=== PATIENT | male | born 1975 | race Caucasian/White ===

== ENCOUNTER 2018-07-24 11:07 | Emergency (ER) | payer BC ==
[2018-07-24] MEDS ORDERED: Sodium Chloride 0.9% 1,000 ML IV ONE (11:23)
[2018-07-24] MEDS ORDERED: Ondansetron 4 MG/2 ML SDV IVPUSH ONE (11:23)
--- NOTE | 2018-07-24 11:23 | EDM.PDOC ---
ED HPI GENERAL MEDICAL PROBLEM - General Chief Complaint: Gastrointestinal Problem Stated Complaint: STOMACH ISSUES Time Seen by Provider: 07/24/18 11:17 Source of Information: Reports: Patient History Limitations: Reports: No Limitations - History of Present Illness INITIAL COMMENTS - FREE TEXT/NARRATIVE: HISTORY AND PHYSICAL: History of present illness: Patient is a 43-year-old male who presents to the emergency room today with complaints of right lower/right upper abdominal pain that radiates around to the back. He describes the pain as burning and sometimes sharp. Patient states that he has noticed a change in his stools over the past month and has had watery diarrhea pretty consistently, without blood in his stool. He states he has had intermittent abdominal pain but didn't think anything of it until the past couple days when it has drastically worsened. He states last night his pain was an 8-9 out of 10. He states he has been taking ibuprofen and his pain this morning is now 3-4 out of 10. He states he has never had this sort of pain before. Patient states that the pain seems to be a little bit better when he is up and walking. He denies any relation of the pain to eating or drinking. He states that he came in today when he noticed that while upon wakening that his belly felt "firm". Patient states he has felt as if he's had chills but has not checked his temperature at home. Patient states that his blood pressure tends to be a little bit higher, but today seems higher than his normal. He has been able to urinate per his normal. He states he has been able to eat and drink per his normal. Patient denies chest pain, shortness of breath, difficulties breathing, diaphoresis, pain in either arm or jaw, wheezing, dysuria, testicular pain, nausea, vomiting, or any other GI, . Denies any cardiovascular or respiratory symptoms. Patient states he has a history of depression and denies any other health history. Review of systems: As per history of present illness and below otherwise all systems reviewed and negative. Past medical history: As per history of present illness and as reviewed below otherwise noncontributory. Surgical history: As per history of present illness and as reviewed below otherwise noncontributory. Social history: See social history for further information Family history: As per history of present illness and as reviewed below otherwise noncontributory. Physical exam: General: Patient is alert, oriented, and in no acute distress. Well-developed and well-nourished. He is sitting comfortably on exam table. HEENT: Atraumatic, normocephalic, pupils equal and reactive bilaterally, negative for conjunctival pallor or scleral icterus, mucous membranes moist, TMs normal bilaterally, throat clear, neck supple, nontender, trachea midline. No drooling or trismus noted. No meningeal signs. No hot potato voice noted. Lungs: Clear to auscultation, breath sounds equal bilaterally, chest nontender. Heart: S1S2, regular rate and rhythm without overt murmur. Abdomen: Obese, semi-firm, distended, moderate tenderness to the right lower and right upper quadrant. Negative rebound tenderness. Negative psoas and obturator sign. Negative for masses or hepatosplenomegaly. Negative for costovertebral tenderness. Abdominal exam is limited due to pain. Pelvis: Stable nontender. Genitourinary: Deferred. Rectal: Deferred. Skin: Intact, warm, dry. No lesions or rashes noted. Extremities: Atraumatic, moves all per self, negative for cords or calf pain. Neurovascular unremarkable. Neuro: Awake, alert, oriented. Cranial nerves II through XII unremarkable. Cerebellum unremarkable. Motor and sensory unremarkable throughout. Exam nonfocal. Notes: Patient's labs are reassuring today with slight elevation of monocytes. Patient was unable to give us a stool study today while in the ED. We will give him supplies over to do this at home and returned this. Abdominal pelvic CT shows moderate splenomegaly but no acute findings in the abdomen or pelvis. We'll test for mono today and will call patient regarding these results when they return. Patients number is [phone]. [place] had resulted prior to patient being discharged. This information was shared with the patient. Supportive care measures were reviewed and discussed. He voices understanding and is agreeable to plan of care. He denies any need for any prescribed medications for his symptoms. He'll follow-up with his primary care provider. Denies any further questions or concerns at this time. Diagnostics: CBC, CMP, UA, Amylase, Lipase, Stool Studies, Abd/Pelvis CT, EKG [employer]: IV fluids, Toradol Prescription: None Impression: Abdominal pain unspecified. Splenomegaly Plan: 1. [place] diet, advance as tolerated. You can use Tylenol and ibuprofen as needed for pain/discomfort. 2. Follow up with stool studies, as we had given and bring back for analysis. 3. We will call you when the mono test results has come back. 4. Follow up with your primary care provider in 1 to 2 days. 5. Return to the ED as needed and as discussed. Definitive disposition and diagnosis as appropriate pending reevaluation and review of above. Right Abdominal Pain Score (Numeric/FACES): 3 - Related Data Allergies Allergy/AdvReac Type Severity Reaction Status Date / Time Penicillins Allergy Hives Verified 07/24/18 11:25 Home Meds: Home Meds Sertraline HCl 100 mg PO DAILY 07/24/18 [History] ED ROS GENERAL - Review of Systems Review Of Systems: ROS reveals no pertinent complaints other than HPI. ED EXAM, GI/ABD - Physical Exam Exam: See Below (See dictation) Course - Vital Signs Last Recorded V/S: Last Vital Signs Temp 97.3 F 07/24/18 11:23 Pulse 86 07/24/18 14:51 Resp 18 07/24/18 14:51 BP 136/101 H 07/24/18 14:51 Pulse Ox 98 07/24/18 14:51 - Orders/Labs/Meds Orders: Active Orders 24 hr Category Date Time Status EKG Documentation Completion [RC] STAT Care 07/24/18 11:35 Active CULTURE STOOL + CAMPY+SHIGATOX [RM] Stat Lab 07/24/18 11:23 Ordered Labs: Laboratory Tests 07/24/18 07/24/18 07/24/18 Range/Units 11:50 11:50 11:50 WBC 5.28 (4.0-11.0) K/uL RBC 5.00 (4.50-5.90) M/uL Hgb 15.4 (13.0-17.0) g/dL Hct 42.4 (38.0-50.0) % MCV 84.8 (80.0-98.0) fL MCH 30.8 (27.0-32.0) pg MCHC 36.3 (31.0-37.0) g/dL RDW Std Deviation 39.6 (28.0-62.0) fl RDW Coeff of Dacia 13 (11.0-15.0) % Plt Count 176 (150-400) K/uL MPV 9.60 (7.40-12.00) fL Add Manual Diff YES Neutrophils % (Manual) 51 (48.0-80.0) % Band Neutrophils % 6 % Lymphocytes % (Manual) 25 (16.0-40.0) % Immat Monocytes % (Man) Monocytes % (Manual) 16 H (0.0-15.0) % Eosinophils % (Manual) 2 (0.0-7.0) % Nucleated RBC % 0.0 /100WBC Absolute Seg Neuts 2.7 (1.4-5.7) Band Neutrophils # 0.3 Lymphocytes # (Manual) 1.3 (0.6-2.4) Monocytes # (Manual) 0.8 (0.0-0.8) Eosinophils # (Manual) 0.1 (0.0-0.7) Nucleated RBCs # 0 K/uL Sodium 135 L (136-148) mmol/L Potassium 3.5 (3.5-5.1) mmol/L Chloride 102 (98-107) mmol/L Carbon Dioxide 21.2 (21.0-32.0) mmol/L BUN 12 (7.0-18.0) mg/dL Creatinine 1.1 (0.8-1.3) mg/dL Est Cr Clr Drug Dosing 82.63 mL/min Estimated GFR (MDRD) > 60.0 ml/min Glucose 107 H (74-106) mg/dL Calcium 8.9 (8.5-10.1) mg/dL Total Bilirubin 0.4 (0.2-1.0) mg/dL AST 24 (15-37) IU/L ALT 33 (14-63) IU/L Alkaline Phosphatase 80 (46-116) U/L Total Protein 7.9 (6.4-8.2) g/dL Albumin 3.7 (3.4-5.0) g/dL Globulin 4.2 H (2.6-4.0) g/dL Albumin/Globulin Ratio 0.9 (0.9-1.6) Amylase 50 (25-115) U/L Lipase 119 (73-393) U/L Urine Color Urine Appearance Urine pH (5.0-8.0) Ur Specific [place] (1.001-1.035) Urine Protein (NEGATIVE) mg/dL Urine Glucose (UA) (NEGATIVE) mg/dL Urine Ketones (NEGATIVE) mg/dL Urine Occult Blood (NEGATIVE) Urine Nitrite (NEGATIVE) Urine Bilirubin (NEGATIVE) Urine Urobilinogen (<2.0) EU/dL Ur Leukocyte Esterase (NEGATIVE) Monoscreen NEGATIVE (NEG) 07/24/18 Range/Units 14:40 WBC (4.0-11.0) K/uL RBC (4.50-5.90) M/uL Hgb (13.0-17.0) g/dL Hct (38.0-50.0) % MCV (80.0-98.0) fL MCH (27.0-32.0) pg MCHC (31.0-37.0) g/dL RDW Std Deviation (28.0-62.0) fl RDW Coeff of Dacia (11.0-15.0) % Plt Count (150-400) K/uL MPV (7.40-12.00) fL Add Manual Diff Neutrophils % (Manual) (48.0-80.0) % Band Neutrophils % % Lymphocytes % (Manual) (16.0-40.0) % Immat Monocytes % (Man) Monocytes % (Manual) (0.0-15.0) % Eosinophils % (Manual) (0.0-7.0) % Nucleated RBC % /100WBC Absolute Seg Neuts (1.4-5.7) Band Neutrophils # Lymphocytes # (Manual) (0.6-2.4) Monocytes # (Manual) (0.0-0.8) Eosinophils # (Manual) (0.0-0.7) Nucleated RBCs # K/uL Sodium (136-148) mmol/L Potassium (3.5-5.1) mmol/L Chloride (98-107) mmol/L Carbon Dioxide (21.0-32.0) mmol/L BUN (7.0-18.0) mg/dL Creatinine (0.8-1.3) mg/dL Est Cr Clr Drug Dosing mL/min Estimated GFR (MDRD) ml/min Glucose (74-106) mg/dL Calcium (8.5-10.1) mg/dL Total Bilirubin (0.2-1.0) mg/dL AST (15-37) IU/L ALT (14-63) IU/L Alkaline Phosphatase (46-116) U/L Total Protein (6.4-8.2) g/dL Albumin (3.4-5.0) g/dL Globulin (2.6-4.0) g/dL Albumin/Globulin Ratio (0.9-1.6) Amylase (25-115) U/L Lipase (73-393) U/L Urine Color YELLOW Urine Appearance CLEAR Urine pH 6.0 (5.0-8.0) Ur Specific [place] 1.010 (1.001-1.035) Urine Protein NEGATIVE (NEGATIVE) mg/dL Urine Glucose (UA) NEGATIVE (NEGATIVE) mg/dL Urine Ketones NEGATIVE (NEGATIVE) mg/dL Urine Occult Blood NEGATIVE (NEGATIVE) Urine Nitrite NEGATIVE (NEGATIVE) Urine Bilirubin NEGATIVE (NEGATIVE) Urine Urobilinogen 0.2 (<2.0) EU/dL Ur Leukocyte Esterase NEGATIVE (NEGATIVE) Monoscreen (NEG) Meds: Medications Discontinued Medications Generic Name Dose Route Start Last Admin Trade Name Freq PRN Reason Stop Dose Admin Sodium Chloride 1,000 mls @ 999 mls/hr 07/24/18 11:23 07/24/18 11:51 Normal Saline IV 07/24/18 12:23 999 mls/hr STAT ONE Administration Iopamidol 100 ml 07/24/18 14:25 07/24/18 14:29 Isovue Multipack-370 (76%) IVPUSH 07/24/18 14:26 100 ml ONETIME STA Administration Ketorolac Tromethamine 30 mg 07/24/18 11:26 07/24/18 11:52 Toradol IVPUSH 07/24/18 11:27 30 mg ONETIME ONE Administration Ondansetron HCl 4 mg 07/24/18 11:23 07/24/18 11:51 Zofran IVPUSH 07/24/18 11:24 Not Given ONETIME ONE Departure - Departure Time of Disposition: 15:23 Disposition: Home, Self-Care 01 Clinical Impression: Splenomegaly Abdominal pain Qualifiers: Abdominal location: unspecified location Qualified Code(s): R10.9 - Unspecified abdominal pain - Discharge Information Instructions: Enlarged Spleen, Abdominal Pain, Adult, [id number] Referrals: Heriberto Kaplan MD [Primary Care Provider] - Forms: ED Department Discharge Additional Instructions: The following information is given to patients seen in the emergency department who are being discharged to home. This information is to outline your options for follow-up care. We provide all patients seen in our emergency department with a follow-up referral. The need for follow-up, as well as the timing and circumstances, are variable depending upon the specifics of your emergency department visit. If you don't have a primary care physician on staff, we will provide you with a referral. We always advise you to contact your personal physician following an emergency department visit to inform them of the circumstance of the visit and for follow-up with them and/or the need for any referrals to a consulting specialist. The emergency department will also refer you to a specialist when appropriate. This referral assures that you have the opportunity for follow-up care with a specialist. All of these measure are taken in an effort to provide you with optimal care, which includes your follow-up. Under all circumstances we always encourage you to contact your private physician who remains a resource for coordinating your care. When calling for follow-up care, please make the office aware that this follow-up is from your recent emergency room visit. If for any reason you are refused follow-up, please contact the [facility] Emergency Department at and asked to speak to the emergency department charge nurse. [facility] [address] [place] [id number] [address] 1. [place] diet, advance as tolerated. You can use Tylenol and ibuprofen as needed for pain/discomfort. 2. Follow up with stool studies, as we had given and bring back for analysis. 3. We will call you when the mono test results has come back. 4. Follow up with your primary care provider in 1 to 2 days. 5. Return to the ED as needed and as discussed. - My Orders Last 24 Hours: My Active Orders 07/24/18 11:23 CULTURE STOOL + CAMPY+SHIGATOX [RM] Stat 07/24/18 11:35 EKG Documentation Completion [RC] STAT - Assessment/Plan Last 24 Hours: My Active Orders 07/24/18 11:23 CULTURE STOOL + CAMPY+SHIGATOX [RM] Stat 07/24/18 11:35 EKG Documentation Completion [RC] STAT
[2018-07-24] MEDS ORDERED: Ketorolac 30 MG/ML SDV IVPUSH ONE (11:26)
[2018-07-24 12:31] LABS: CHLORIDE,CL 102 mmol/L (98-107); SODIUM,NA 135 mmol/L (136-148)
[2018-07-24] MEDS ORDERED: Iopamidol 755 MG/ML 500 ML Multipack Bottle IVPUSH STA (14:25)
--- NOTE | 2018-07-24 15:13 | CT ---
CT of the abdomen and pelvis with contrast. HISTORY: Pain TECHNIQUE: Axial CT images were obtained of the abdomen and pelvis following administration of 100 mL of Isovue-370 in the right antecubital fossa without complication. Coronal and sagittal reconstructions obtained. FINDINGS: The lung bases are clear, no pleural effusion. There is mild dependent atelectasis. The liver, adrenal glands, and pancreas appear normal. The gallbladder is normal. There is no bulky retroperitoneal lymphadenopathy or abdominal ascites. The spleen is moderately enlarged. The kidneys enhance and function symmetrically without evidence of obstructive uropathy. The large and small bowel are normal in caliber without evidence of obstruction. No focal pericolonic inflammation or stranding. The appendix is normal. The urinary bladder is normal. Tiny fat-containing left inguinal hernia. No pelvic lymphadenopathy or free pelvic fluid. No suspicious osseous abnormalities identified. IMPRESSION: 1. Moderate splenomegaly. 2. No acute findings noted within the abdomen or pelvis.
== END 2018-07-24 15:44 | disposition home or self-care (01) ==
LOC: MW.ED 11:07
DX: R10.11 Right upper quadrant pain (principal); R10.31 Right lower quadrant pain; R16.1 Splenomegaly, not elsewhere classified; E66.9 Obesity, unspecified; Z68.39 Body mass index [BMI] 39.0-39.9, adult
CPT/HCPCS: 36415; 74177; 80053; 81003; 82150; 83690; 85025; 86308; 93005; 96361; 96374; 99284; J1885; J7040; Q9967

== ENCOUNTER 2018-09-13 10:18 | Day surgery (SDC) | payer BC ==
[~2018-09-13 10:18] MED LIST: Lactated Ringers 1,000 ML IV SCH
--- NOTE | 2018-09-13 11:44 | PCM.PREANE ---
Preanesthetic Assessment - Anesthesia/Transfusion/Family Hx Anesthesia History: Prior Anesthesia Without Reaction Family History of Anesthesia Reaction: No Transfusion History: No Prior Transfusion(s) - Review of Systems General: No Symptoms Pulmonary: No Symptoms Cardiovascular: No Symptoms Gastrointestinal: No Symptoms Neurological: No Symptoms Other: Reports: None - Physical Assessment NPO Status Date: 09/12/18 Height: 5 ft 8 in Weight: 113.398 kg ASA Class: 1 Mental Status: Alert & Oriented x3 Dentition: Reports: Normal Dentition ROM/Head Extension: Full Lungs: Clear to Auscultation, Normal Respiratory Effort Cardiovascular: Regular Rate, Regular Rhythm - Allergies Allergies/Adverse Reactions: Allergies Allergy/AdvReac Type Severity Reaction Status Date / Time Penicillins Allergy Hives Verified 09/09/18 12:27 - Blood Blood Available: No - Anesthesia Plan Pre-Op Medication Ordered: None - Acknowledgements Anesthesia Type Planned: MAC Pt an Appropriate Candidate for the Planned Anesthesia: Yes Alternatives and Risks of Anesthesia Discussed w Pt/Guardian: Yes Pt/Guardian Understands and Agrees with Anesthesia Plan: Yes PreAnesthesia Questionnaire HEENT History: Reports: Other (See Below) Other HEENT History: wears glasses Cardiovascular History: Reports: Other (See Below) Other Cardiovascular History: states some hypertension- no medication Gastrointestinal History: Reports: Other (See Below) Other Gastrointestinal History: some heartburn- takes TUMS Musculoskeletal History: Reports: Fracture Other Musculoskeletal History: hx of fx ankle, wrist,clavicle and coccy -no hardware Neurological History: Reports: Headaches, Chronic Psychiatric History: Reports: Anxiety Endocrine/Metabolic History: Reports: Obesity/BMI 30+ - Infectious Disease History Infectious Disease History: Reports: Chicken Pox - Past Surgical History HEENT Surgical History: Reports: Oral Surgery Other HEENT Surgeries/Procedures: wisdom teeth - SUBSTANCE USE Smoking Status *Q: Current Every Day Smoker Tobacco Use Within Last Twelve Months: Smokeless Tobacco Days Per Week of Alcohol Use: 7 Number of Drinks Per Day: 3 Total Drinks Per Week: 21 Recreational Drug Use History: No - HOME MEDS Home Medications: Home Meds Sertraline HCl 100 mg PO DAILY 07/24/18 [History] - CURRENT (IN HOUSE) MEDS Current Meds: Current Medications Lactated Ringer's (Ringers, Lactated) 1,000 mls @ 125 mls[facility]hr [facility]
[2018-09-13] MEDS ORDERED: Propofol 200 MG/20 ML SDV ONE ×2 (12:48→13:08)
[2018-09-13] MEDS ORDERED: Midazolam 1 MG/ML 2 ML SDV ONE (12:48)
[2018-09-13] MEDS ORDERED: Lidocaine 2% 5 ML SDV ONE (12:48)
[2018-09-13] MEDS ORDERED: fentaNYL 100 MCG/2 ML SDV ONE (12:48)
--- NOTE | 2018-09-13 13:19 | PCM.OPNOTE ---
- General Post-Op/Procedure Note Date of Surgery/Procedure: 09/13/18 Pre Op Diagnosis: Change in bowel habits. Decreased caliber of stool. Right- sided abdominal pain. Post-Op Diagnosis: No evidence of neoplasia. Anesthesia Technique: MAC (ASA II) Primary Surgeon: John Esquivel Condition: Good Free Text/Narrative:: DICTATION [id number] CPT CODE [id number]
--- NOTE | 2018-09-13 13:28 | PCM.POSTAN ---
POST ANESTHESIA ASSESSMENT - MENTAL STATUS Mental Status: Alert, Oriented - RESPIRATORY Respiratory Status: Respiratory Rate WNL, Airway Patent, O2 Saturation Stable - CARDIOVASCULAR CV Status: Pulse Rate WNL, Blood Pressure Stable - GASTROINTESTINAL GI Status: No Symptoms - PAIN Pain Score: 0 - POST OP HYDRATION Hydration Status: Adequate & Stable
[2018-09-13] MEDS ORDERED: Lactated Ringers 1,000 ML IV SCH (13:30)
--- NOTE | 2018-09-13 13:34 | PCM48HPAN ---
Post Anesthesia Note - EVALUATION WITHIN 48HRS OF ANESTHETIC Vital Signs in Normal Range: Yes Patient Participated in Evaluation: Yes Respiratory Function Stable: Yes Airway Patent: Yes Cardiovascular Function Stable: Yes Hydration Status Stable: Yes Pain Control Satisfactory: Yes Nausea and Vomiting Control Satisfactory: Yes Mental Status Recovered: Yes Resp Rate: 18
--- NOTE | 2018-09-13 20:16 | OR ---
SURGEON: John Esquivel M.D. DATE OF PROCEDURE: 09/13/2018 OPERATION PERFORMED: Colonoscopy. ANESTHESIA: MAC. ASA CLASSIFICATION: 2. PREOPERATIVE DIAGNOSES: Change in bowel habits, decreased caliber of stool, right-sided abdominal pain. POSTOPERATIVE DIAGNOSIS: No evidence of neoplasia. DESCRIPTION OF PROCEDURE: The patient was taken to the endoscopy room and positioned on the endoscopy table in the left lateral decubitus position. Time-out was called for appropriate identification of the patient and procedure. Monitored anesthesia care was provided. The colonoscope was inserted into the rectum and advanced with minimal difficulty to the cecum where the colonoscope was retroflexed to visualize the ascending colon from below. The colonoscope was then straightened and slowly withdrawn. The cecum, ascending colon, hepatic flexure, transverse colon, splenic flexure, descending colon, sigmoid colon, and rectum were very well visualized. No tumors, polyps, diverticula, or angiodysplastic changes were noted anywhere throughout the lower gastrointestinal tract. There was no evidence of inflammatory bowel disease. No strictures were noted. The colonoscope was withdrawn to the rectum and retroflexed to visualize the anal orifice from above. Again, no tumors or polyps were seen, and there were no acute hemorrhoidal changes. The colonoscope was then straightened, the rectum aspirated, and the colonoscope removed. The patient tolerated the procedure well and was taken to recovery room in stable condition. AMANDA MAO /[id number]
== END 2018-09-13 14:00 | disposition home or self-care (01) ==
LOC: MW.SDS 10:18
PROVIDERS: ATTEND Surgery
DX: R19.4 Change in bowel habit (principal); R10.31 Right lower quadrant pain; F32.9 Major depressive disorder, single episode, unspecified; F41.9 Anxiety disorder, unspecified; F17.220 Nicotine dependence, chewing tobacco, uncomplicated; E66.9 Obesity, unspecified; Z68.38 Body mass index [BMI] 38.0-38.9, adult; Z80.0 Family history of malignant neoplasm of digestive organs; Z87.898 Personal history of other specified conditions
CPT/HCPCS: 45378; J2001; J2250; J2704; J3010